=== PATIENT | female | born 2000 | race Two or more races ===

== ENCOUNTER 2025-01-10 04:10 | Emergency (ER) | payer MEDICAID ==
[~2025-01-10] VITALS: Ht 160 cm; Wt 69.8 kg
[2025-01-10 04:19] VITALS: TEMP 96.8
[2025-01-10 04:58] LABS: BILIRUBIN,URINE NEGATIVE (Neg); CLARITY,URINE CLEAR (Clear); COLOR,URINE YELLOW (Yellow); GLUCOSE, URINE NEGATIVE (Neg); KETONES,URINE NEGATIVE (Neg); LEUKOCYTE ESTERASE ,URINE NEGATIVE (Neg); NITRITES, URINE NEGATIVE (Neg); OCCULT BLOOD,URINE SMALL (Neg); PROTEIN,URINE TRACE mg/dl (Neg); UA COLLECTION TYPE CLN CATCH MIDSTREAM; URINE HCG NEGATIVE (NEG); UROBILINOGEN,URINE 0.2 E.U/dL (0.2-1.0)
[2025-01-10 05:03] LABS: MUCUS STRANDS FEW /LPF (Neg); SQUAMOUS EPITHELIAL CELL,UR MANY /LPF (FEW)
[2025-01-10 05:04] LABS: BACTERIA,URINE FEW /HPF (Neg); RBC,URINE 0-2 /HPF (0-2); WBC,URINE 0-4 /HPF (0-4)
--- NOTE | 2025-01-10 05:11 | Physician Documentation ---
History of Present Illness ~ Chief Complaint: Abdominal Pain Stated Complaint: ABD PAIN Time Seen by MD: 05:09 HPI Patient presents to the emergency room for evaluation of left-sided abdominal pain. She reports that she has been having abdominal pain over the past year ho wever that has gotten worse with a past day. She does endorse hard stools. Takes MiraLax. No nausea or vomiting. She has her appendix and gallbladder still. Pain comes intermittently in his sharp in nature Medication Reconciliation Allergies: Coded Allergies: No Known Allergies (Unverified , 01/10/25) Review of Systems ROS All review of systems negative except as per HPI Physical Exam Vital Signs: Temperature: 96.8, Source: Temporal, Heart Rate: 89, Respiratory Rate: 15, BP: 121/92, Pulse Oximetry: 97, Weight: 69.750 Physical Exam General: Patient is awake, alert, oriented x4 in no acute distress and well appearing.~ Head: Normocephalic and atraumatic. Eyes: Conjunctival normal. EOMI. PERRL. ENT: Mucous membranes moist. Neck: Supple, trachea is midline. Chest: Clear to auscultation bilaterally without rales, rhonchi, or wheezes. There is no accessory muscle use or retractions. Cardiac: RRR without murmurs, gallops, or rubs. Abd: Soft, nondistended, mild tenderness to deep palpation left lower quadrant, no adnexal tenderness Progress Results/Orders Results/Orders Orders - JERROD JONES MD Drug Screen, Urine (01/10/25 05:09) Procalcitonin (01/10/25 05:15) Completed Orders - JERROD JONES MD Hcg, Ur Ql (01/10/25 04:21) Cbc/Diff (01/10/25 04:21) BMP (01/10/25 04:21) Lipase (01/10/25 04:21) CMP (01/10/25 04:21) Ua W/Microscopic, Cult If Ind (01/10/25 04:25) Dicyclomine Capsule (Bentyl Capsule) (01/10/25 05:15) Medications Received in ER Medications (Trade) Dose Ordered Sig/Brian Route PRN Reason Start Time Stop Time Status Last Admin Dose Admin (Bentyl capsule) 20 mg ONCE ONCE PO 01/10/25 05:15 01/10/25 05:16 DC 01/10/25 05:25 20 MG Vital Signs 01/10/25 01/10/25 04:19 05:20 Temp 96.8 Pulse 89 Resp 15 16 B/P (MAP) 121/92 Pulse Ox 97 Laboratory Tests Test 01/10/25 04:25 01/10/25 05:12 Urine Specimen Description Cln catch midstream Urine Color Yellow Urine Clarity Clear Urine pH 6.0 Urine Specific [place] 1.020 Urine Protein Trace Urine Glucose (UA) Negative Urine Ketones Negative Urine Occult Blood Small Urine Nitrite Negative Urine Bilirubin Negative Urine Urobilinogen 0.2 Urine Leukocyte Esterase Negative Urine RBC 0-2 Urine WBC 0-4 Urine Squamous Epithelial Cells Many Urine Bacteria Few Urine Mucus Few Urine Culture Indicated Not ind Volume Urine Centrifuged 5 ml Urine HCG, Qualitative Negative Urine Comment Low volume White Blood Count 7.3 Red Blood Count 4.48 Hemoglobin 13.4 Hematocrit 38.8 Mean Corpuscular Volume 86.7 Mean Corpuscular Hemoglobin 29.9 Mean Corpuscular Hemoglobin Concent 34.5 Red Cell Distribution Width 12.8 Platelet Count 318 Mean Platelet Volume 7.5 Neutrophils (%) (Auto) 53.5 Lymphocytes (%) (Auto) 36.9 Monocytes (%) (Auto) 8.3 Eosinophils (%) (Auto) 1.0 Basophils (%) (Auto) 0.3 Neutrophils # (Auto) 3.9 Lymphocytes # (Auto) 2.7 Monocytes # (Auto) 0.6 Eosinophils # (Auto) 0.1 Basophils # (Auto) 0.0 CBC Comment Sodium Level 139 Potassium Level 3.7 Chloride Level 104 Carbon Dioxide Level 21.2 L Anion Gap 14 Blood Urea Nitrogen 6 L Creatinine 0.58 Estimated GFR/1.73 m2 > 90 BUN/Creatinine Ratio 10.3 Glucose Level 131 H Calcium Level 8.5 Total Bilirubin 0.6 Aspartate Amino Transf (AST/SGOT) 23 Alanine Aminotransferase (ALT/SGPT) 51 Alkaline Phosphatase 102 Total Protein 8.0 Albumin 4.2 Globulin 3.8 Albumin/Globulin Ratio 1.1 Lipase 28 Chemistry Comments Medical Decision Making Findings Patient presents to the emergency room for chief complaint of abdominal pain. Differentials include but are not limited to constipation cholecystitis appendicitis diverticulitis pancreatitis kidney stone ovarian pathology therefore emergent labs ordered which were reassuring. Urine clear. No adnexal tenderness and he had not feel she is suffering from ovarian pathology. Given history and physical exam I feel she is likely suffering from constipation we will treat her as such with ER precautions discussed. Offered CT scan but after discussing risks of radiation we will defer and go with conservative management at this time Departure Disposition: HOME / SELF CARE / HOMELESS Impression: Primary Impression: Abdominal pain Additional Impression: Suspected constipation Condition: Stable Discharge Instructions: Constipation, Adult, [id number] Referrals: NO PRIMARY CARE PROVIDER (PCP) Prescriptions Polyethylene Glycol 3350 (Miralax) 17 Gram/Dose Powder 17 GM PO DAILY for constipation, #255 GM 0 Refills Increase by 2-3 scoops daily until having regular bowel movements. Stop if diarrhea. Must drink with plenty of water Prov: JERROD JONES MD 01/10/25 Bisacodyl (Dulcolax) 5 Mg Tablet.dr 4 TAB PO ONCE for constipation for 1 Day, #4 TAB 0 Refills Prov: JERROD JONES MD 01/10/25 Education Educated: Patient Educated regarding: diagnosis, treatment, need for follow up Signature Scribe Signature: No scribe Attestation: The note accurately reflects work and decisions made by me.Jerrod Jones MD 01/10/25 05:47 JERROD JONES MD Jan 10, 2025 05:10
[2025-01-10 05:20] LABS: BASOPHILS % (AUTO) 0.3 % (0-1); EOSINOPHILS # (AUTO) 0.1 X10'3 (0-0.9); HEMATOCRIT 38.8 % (35.0-45.0); HEMOGLOBIN 13.4 g/dl (12.0-16.0); LYMPHOCYTES # (AUTO) 2.7 X10'3 (1.1-4.8); LYMPHOCYTES % (AUTO) 36.9 % (21-51); MEAN CORPUSCULAR HEMOGLOBIN 29.9 PG (27.0-31.0); MEAN CORPUSCULAR HGB CONC 34.5 g/dL (33.0-36.5); MEAN CORPUSCULAR VOLUME 86.7 FL (78-98); MEAN PLATELET VOLUME 7.5 FL (7.4-10.4); MONOCYTES # (AUTO) 0.6 X10'3 (0-0.9); MONOCYTES % (AUTO) 8.3 % (2-12); NEUTROPHILS # (AUTO) 3.9 X10'3 (1.8-7.7); NEUTROPHILS % (AUTO) 53.5 % (42-75); PLATELET COUNT 318 X10'3 (140-440); RED BLOOD COUNT 4.48 X10'6 (4.20-5.60); RED CELL DISTRIBUTION WIDTH 12.8 % (11.5-14.5); WHITE BLOOD COUNT 7.3 X10'3 (4.5-11.0)
[2025-01-10] MEDS: dicyclomine 10 MG capsule PO ONE (05:25)
[2025-01-10 05:36] LABS: ALANINE AMINOTRANSFERASE 51 U/L (12-78); ALBUMIN 4.2 G/DL (3.4-5.0); ALBUMIN/GLOBULIN RATIO 1.1 (1.1-1.5); ALKALINE PHOSPHATASE 102 IU/L (46-116); ANION GAP 14 (8-16); ASPARTATE AMINO TRANSFERASE 23 U/L (10-37); BILIRUBIN,TOTAL 0.6 MG/DL (0.1-1.0); BLOOD UREA NITROGEN 6 MG/DL (7-18); BUN/CREATININE RATIO 10.3 (10.0-20.0); CALCIUM 8.5 MG/DL (8.5-10.1); CHLORIDE 104 MMOL/L (99-107); CREATININE 0.58 MG/DL (0.40-0.90); GLUCOSE 131 MG/DL (70-104); LIPASE 28 U/L (16-77); POTASSIUM 3.7 MMOL/L (3.5-5.1); SODIUM 139 MMOL/L (135-145); TOTAL CARBON DIOXIDE 21.2 MMOL/L (24-32); eCRCL 123 ML/MIN; eGFR > 90 ML/MIN
[2025-01-10] MEDS ORDERED: POLY119P2 PO (05:47)
[2025-01-10] MEDS ORDERED: BISA-78 PO (05:47)
[2025-01-10 06:01] VITALS: BP 124/91; PULSE 71; RESP 16; O2SAT 100
== END 2025-01-10 06:04 | disposition home or self-care (01) ==
LOC: ER 04:11
DX: R10.32 Left lower quadrant pain (principal)
CPT/HCPCS: 36415; 80053; 81001; 81025; 83690; 84145; 85025; 99283